=== PATIENT | male | born 1955 | race Asian ===

== ENCOUNTER → 2017-12-30 | Outpatient (CLI) | payer BC ==
[~2017-12-30] VITALS: Ht 172.7 cm; Wt 68.9 kg
[~2017-12-30] MED LIST: ASPIRIN 81M81 MG/TA2 PO; BINOSTO PO; CALCIUM CARBON650 M2 PO; FAMVIR 500500 MG/TAB PO; NEXIUM ORA40 MG/Pack PO; PREDNISONE20 MG PO; REGLAN 10MG10 MG/TAB PO; TOPROL XL 25MG25 MG PO; VITAMIN C500 MG PO; VITAMIN D31000 I1 PO; [UNRECOGNIZED DRUG - OTHER]
[2017-12-30 06:42] VITALS: BP 85/56; PULSE 64
== END ==
LOC: COL.CARD 06:16
DX: R07.89 Other chest pain (principal)
CPT/HCPCS: A9502

== ENCOUNTER → 2020-08-20 | Outpatient (CLI) | payer BC | LOC: ZCOL.LAB 21:24 | DX: B34.9 Viral infection, unspecified (principal); Z20.828 Contact with and (suspected) exposure to other viral communicable diseases ==